=== PATIENT | female | born 1955 | race Caucasian/White ===

== ENCOUNTER → 2019-01-17 07:23 | Outpatient (CLI) | payer OTHER, SELFPAY ==
[2019-01-17 08:14] LABS: Add Manual Diff / Slide Review NO; Basophils Absolute Auto 100 /uL (0-100); Basophils Percent Auto 1.4 % (0-2); Eosinophils Absolute Auto 400 /uL (0-450); Eosinophils Percent Auto 5.9 % (2-4); Hematocrit 52.8 % (36-46); Hemoglobin 17.4 g/dL (12.0-16.0); Lymphocytes Absolute Auto 1900 /uL (1100-4500); Lymphocytes Percent Auto 28.9 % (25-40); Mean Corpuscular Hemoglobin 28.2 PG (26-34); Mean Corpuscular Volume 85.3 fL (80-100); Monocytes Absolute Auto 600 /uL (0-900); Monocytes Percent Auto 8.7 % (3-14); Neutrophils Absolute Auto 3600 /uL (1500-7000); Neutrophils Percent Auto 55.1 % (50-75); Platelet Count 216 X10^3/uL (150-400); Red Blood Cell Count 6.19 X10^6/uL (4.0-5.2); White Blood Cell Count 6.6 X10^3/uL (4.5-11.0)
[2019-01-17 08:28] LABS: Alanine Aminotransferase 66 IU/L (<35); Albumin 4.4 g/dL (3.5-5.0); Albumin Globulin Ratio 1.5 (1.0-2.8); Alkaline Phosphatase 87 U/L (38-126); Aspartate Aminotransferase 54 IU/L (14-36); Blood Urea Nitrogen 30 mg/dL (7-17); Carbon Dioxide 29 mmol/L (22-32); Chloride 99 mmol/L (98-107); Cholesterol 226 mg/dL (140-199); Estimated Glomerular Filt Rate 35.3 mL/min (>60); Glucose 136 mg/dL (80-110); HDL Cholesterol 38 mg/dL (40-60); HEMOLYSIS < 15 (0-50); LDL Cholesterol Calculated 139 mg/dL (<100); Magnesium 2.1 mg/dL (1.6-2.3); Potassium 4.1 mmol/L (3.4-5.1); Sodium 139 mmol/L (137-145); Total Protein 7.4 g/dL (6.3-8.2); Triglycerides 246 mg/dL (35-150)
[2019-01-17 08:31] LABS: B Type Natriuretic Peptide < 100 (<100)
[2019-01-17 08:58] LABS: HEMOLYSIS < 15 (0-50); Iron 149 ug/dL (37-170)
[2019-01-17 09:08] LABS: Percent Iron Saturation 38 % (15-50); Total Iron Binding Capacity 397 ug/dL (265-497); Transferrin 325 mg/dL (206-381)
[2019-01-17 09:16] LABS: Vitamin D 25 Hydroxy (D3) 27.5 ng/mL (30.0-100.0)
== END ==
PROVIDERS: PCP Physician Assistant; Visit Provider Physician Assistant
DX: E78.2 Mixed hyperlipidemia (principal); I50.21 Acute systolic (congestive) heart failure; J96.21 Acute and chronic respiratory failure with hypoxia; I48.92 Unspecified atrial flutter; R60.9 Edema, unspecified; E61.1 Iron deficiency; E55.9 Vitamin D deficiency, unspecified
CPT/HCPCS: 36415; 80053; 80061; 82306; 83540; 83550; 83735; 83880; 85025

== ENCOUNTER → 2019-02-01 13:47 | Outpatient (CLI) | payer OTHER, SELFPAY ==
[2019-02-01 14:39] LABS: Add Manual Diff / Slide Review NO; Basophils Percent Auto 0.8 % (0-2); Eosinophils Percent Auto 13.5 % (2-4); Hematocrit 50.7 % (36-46); Hemoglobin 16.7 g/dL (12.0-16.0); Lymphocytes Percent Auto 17.8 % (25-40); Mean Corpuscular HGB Conc 32.9 % (30-36); Mean Corpuscular Hemoglobin 28.3 PG (26-34); Mean Corpuscular Volume 86.1 fL (80-100); Monocytes Percent Auto 6.4 % (3-14); Neutrophils Percent Auto 61.5 % (50-75); Platelet Count 196 X10^3/uL (150-400); Red Blood Cell Count 5.89 X10^6/uL (4.0-5.2); Red Cell Distribution Width 16.5 % (11.6-14.8); White Blood Cell Count 8.4 X10^3/uL (4.5-11.0)
[2019-02-01 14:40] LABS: Basophils Absolute Auto 100 /uL (0-100); Eosinophils Absolute Auto 1100 /uL (0-450); Lymphocytes Absolute Auto 1500 /uL (1100-4500); Monocytes Absolute Auto 500 /uL (0-900); Neutrophils Absolute Auto 5100 /uL (1500-7000)
[2019-02-01 15:21] LABS: Alanine Aminotransferase 23 IU/L (<35); Albumin 4.2 g/dL (3.5-5.0); Albumin Globulin Ratio 1.6 (1.0-2.8); Alkaline Phosphatase 95 U/L (38-126); Aspartate Aminotransferase 21 IU/L (14-36); BUN Creatinine Ratio 20.3 (6-22); Bilirubin Total 0.7 mg/dL (0.2-1.3); Blood Urea Nitrogen 59 mg/dL (7-17); Calcium 10.3 mg/dL (8.4-10.2); Carbon Dioxide 34 mmol/L (22-32); Chloride 92 mmol/L (98-107); Estimated Glomerular Filt Rate 16.5 mL/min (>60); Globulin 2.7 g/dL (1.7-4.1); Glucose 119 mg/dL (80-110); HEMOLYSIS < 15 (0-50); Potassium 5.7 mmol/L (3.4-5.1); Sodium 137 mmol/L (137-145); Total Protein 6.9 g/dL (6.3-8.2)
[2019-02-01 16:26] LABS: Vitamin B12 669 pg/mL (239-931)
== END ==
PROVIDERS: PCP Physician Assistant; Visit Provider Physician Assistant
DX: N17.9 Acute kidney failure, unspecified (principal); R79.89 Other specified abnormal findings of blood chemistry; D58.2 Other hemoglobinopathies; R94.5 Abnormal results of liver function studies; D75.1 Secondary polycythemia
CPT/HCPCS: 36415; 80053; 82607; 82746; 85025

== ENCOUNTER → 2019-02-05 09:00 | Outpatient (CLI) | payer OTHER, SELFPAY ==
[2019-02-05 10:38] LABS: BUN Creatinine Ratio 25.4 (6-22); Blood Urea Nitrogen 61 mg/dL (7-17); Calcium 10.2 mg/dL (8.4-10.2); Carbon Dioxide 31 mmol/L (22-32); Chloride 95 mmol/L (98-107); Estimated Glomerular Filt Rate 20.5 mL/min (>60); Glucose 132 mg/dL (80-110); HEMOLYSIS < 15 (0-50); Sodium 137 mmol/L (137-145)
[2019-02-05 10:39] LABS: Potassium 5.6 mmol/L (3.4-5.1)
== END ==
PROVIDERS: PCP Physician Assistant; Visit Provider Internal Medicine Cardiovascular Disease
DX: I50.22 Chronic systolic (congestive) heart failure (principal)
CPT/HCPCS: 36415; 80048

== ENCOUNTER → 2019-02-15 18:47 | Outpatient (ROUT) | payer OTHER, SELFPAY ==
[2019-02-15 19:00] LABS: BUN Creatinine Ratio 19.6 (6-22); Blood Urea Nitrogen 45 mg/dL (7-17); Calcium 9.9 mg/dL (8.4-10.2); Carbon Dioxide 30 mmol/L (22-32); Chloride 102 mmol/L (98-107); Estimated Glomerular Filt Rate 21.6 mL/min (>60); Glucose 106 mg/dL (80-110); HEMOLYSIS < 15 (0-50); Potassium 4.7 mmol/L (3.4-5.1); Sodium 140 mmol/L (137-145)
== END ==
PROVIDERS: PCP Physician Assistant; Visit Provider Physician Assistant
DX: I50.21 Acute systolic (congestive) heart failure (principal)
CPT/HCPCS: 80048

== ENCOUNTER → 2019-02-23 14:25 | Outpatient (CLI) | payer OTHER, SELFPAY ==
--- NOTE | 2019-02-23 | DI.MG.S_ITS ---
BILATERAL DIGITAL SCREENING MAMMOGRAM 3D/2D WITH CAD: 02/23/2019 CLINICAL: Baseline exam. Routine screening. Family history of breast cancer. No prior exams were available for comparison. The tissue of both breasts is predominantly fatty. Current study was also evaluated with a Computer Aided Detection (CAD) system. No significant masses, calcifications, or other findings are seen in either breast. IMPRESSION: NEGATIVE There is no mammographic evidence of malignancy. A 1 year screening mammogram is recommended. This exam was interpreted at Station ID: [id number]. NOTE: For mammograms, a report in lay terms will be sent to the patient. Approximately 15% of breast malignancies will not be visualized mammographically. In the management of a palpable breast mass, a negative mammogram must not discourage biopsy of a clinically suspicious lesion. Electronically Signed By: Wallace stevenson/nolan:02/23/2019 16:35:34 letter sent: Normal Exam ACR BI-RADS Category 1: Negative [id number]
== END ==
PROVIDERS: PCP Physician Assistant; Visit Provider Physician Assistant
DX: Z12.31 Encounter for screening mammogram for malignant neoplasm of breast (principal); Z80.3 Family history of malignant neoplasm of breast
CPT/HCPCS: 77063; 77067

== ENCOUNTER → 2019-02-27 17:06 | Outpatient (CLI) | payer OTHER, SELFPAY ==
[2019-02-27 17:52] LABS: Add Manual Diff / Slide Review NO; Basophils Absolute Auto 100 /uL (0-100); Basophils Percent Auto 1.2 % (0-2); Eosinophils Absolute Auto 400 /uL (0-450); Eosinophils Percent Auto 6.6 % (2-4); Hematocrit 47.7 % (36-46); Hemoglobin 15.7 g/dL (12.0-16.0); Lymphocytes Absolute Auto 1800 /uL (1100-4500); Lymphocytes Percent Auto 29.2 % (25-40); Mean Corpuscular HGB Conc 32.9 % (30-36); Mean Corpuscular Hemoglobin 28.7 PG (26-34); Mean Corpuscular Volume 87.3 fL (80-100); Monocytes Absolute Auto 400 /uL (0-900); Monocytes Percent Auto 6.1 % (3-14); Neutrophils Absolute Auto 3500 /uL (1500-7000); Neutrophils Percent Auto 56.9 % (50-75); Platelet Count 176 X10^3/uL (150-400); Red Blood Cell Count 5.46 X10^6/uL (4.0-5.2); Red Cell Distribution Width 17.6 % (11.6-14.8); White Blood Cell Count 6.2 X10^3/uL (4.5-11.0)
[2019-02-27 18:15] LABS: BUN Creatinine Ratio 24.5 (6-22); Blood Urea Nitrogen 49 mg/dL (7-17); Calcium 9.7 mg/dL (8.4-10.2); Carbon Dioxide 27 mmol/L (22-32); Chloride 102 mmol/L (98-107); Estimated Glomerular Filt Rate 25.3 mL/min (>60); Glucose 113 mg/dL (80-110); HEMOLYSIS 17 (0-50); Potassium 5.1 mmol/L (3.4-5.1); Sodium 138 mmol/L (137-145)
[2019-02-27 18:27] LABS: B Type Natriuretic Peptide 112 (<100)
[2019-02-28 08:04] LABS: Bacteria Urine None Seen; RBC Urine None Seen (0-5/HPF); WBC Urine None Seen (0-5/HPF)
[2019-02-28 08:57] LABS: Appearance Urine UA TURBID; Bilirubin Urine UA NEGATIVE (NEGATIVE); Color Urine UA YELLOW; Glucose Urine UA NEGATIVE (Negative); Ketones Urine UA NEGATIVE (NEGATIVE); Leukocyte Esterase Urine UA NEGATIVE (NEGATIVE); Nitrite Urine UA NEGATIVE (Negative); Occult Blood Urine UA NEGATIVE (Negative); Protein Urine UA NEGATIVE (Negative); Urobilinogen Urine UA 0.2 E.U./dL (0.2)
[2019-02-28 09:03] LABS: Amorphous Sediment Urine 2+
[2019-02-28 09:25] LABS: Creatinine Urine Random 117.2 mg/dL; Protein (Total) Urine Random 9 mg/dL (0-12); Protein Creatinine Ratio Urine 0.07 GRAM/24H
== END ==
PROVIDERS: Family Provider Physician Assistant; PCP Physician Assistant; Visit Provider Internal Medicine Nephrology
DX: N05.9 Unspecified nephritic syndrome with unspecified morphologic changes (principal); I50.32 Chronic diastolic (congestive) heart failure; D63.1 Anemia in chronic kidney disease; N30.00 Acute cystitis without hematuria; R80.9 Proteinuria, unspecified; D70.9 Neutropenia, unspecified
CPT/HCPCS: 36415; 80048; 81001; 82570; 83880; 84156; 85025

== ENCOUNTER → 2019-03-07 14:21 | Outpatient (CLI) | payer OTHER, SELFPAY ==
--- NOTE | 2019-03-07 | DI.US.S_ITS ---
PROCEDURE: US RENAL COMPLETE INDICATIONS: ABNORMAL KIDNEY FUNCTION TESTS TECHNIQUE: Real-time scanning was performed of the kidneys and bladder, with image documentation. COMPARISON: None. FINDINGS: Kidneys: Kidneys are normal in size. Right kidney measures 11.8 cm long; left kidney measures 10.8 cm long. Right renal cortical thickness is 1.7 cm; left renal cortical thickness is 1.6 cm. Renal cortical echotexture is normal. No hydronephrosis or nephrolithiasis. No suspicious solid mass lesions. Bladder: Urinary bladder is not well-visualized secondary to inadequate distention. Visualized portions of the urinary bladder appear unremarkable. Miscellaneous: No free pelvic fluid. IMPRESSION: Unremarkable sonographic evaluation of the bilateral kidneys without evidence for obstructive uropathy, urolithiasis, or suspicious mass lesions. Suboptimal visualization of the urinary bladder secondary to patient's scanning characteristics and incomplete distention during examination. Dictated by: Jim Randolph M.D. on 03/08/2019 at 13:11 Approved by: Jim Randolph M.D. on 03/08/2019 at 13:14
== END ==
PROVIDERS: Family Provider Physician Assistant; PCP Physician Assistant; Visit Provider Internal Medicine Nephrology
DX: R94.4 Abnormal results of kidney function studies (principal); N32.0 Bladder-neck obstruction; N17.9 Acute kidney failure, unspecified
CPT/HCPCS: 76770

== ENCOUNTER → 2019-03-21 14:26 | Outpatient (CLI) | payer OTHER, SELFPAY ==
--- NOTE | 2019-03-21 | DI.ECHO.S_ITS ---
[facility]---------+ [facility] +---------+ : : [address] [place] : : : : [id number] : : : : Phone: [phone] Echocardiogram Report + + :Name: VINH MOSS Study Date: 03/21/2019 Height: 66 in : :[facility] Weight: 321 lb : : Gender: Female BSA: 2.4 m2 : :: 1955 Age: 63 yrs BP: 142/94 mmHg: :Reason For Study: Congestive Heart Failure : :Ordering Physician: Ana Barraza : :[place] Performed By: Vira Ivory : :Referring: ANA STOREY : + + Interpretation Summary 1) Mildly increased left ventricular thickness (concentric) with normal size, normal wall motion, and normal systolic function (EF 65-70%). 2) Grossly, normal right ventricular size and function. 3) No significant valvular abnormalities. 4) No prior Echo available for comparison. Procedure: A two-dimensional transthoracic echocardiogram with color flow and Doppler was performed. The study quality was technically difficult. A contrast injection of Definity was performed to improve assessment of LV function. There is no prior echocardiogram noted for this patient. Contrast requested on echo order. The patient was in sinus bradycardia with heart rates between 46-68 bpm during the exam. Left Ventricle: The left ventricle is normal in size. Left ventricular wall thickness is mildly increased. The ejection fraction is estimated to be 65- 70%. Left ventricular wall motion is normal. Right Ventricle: The right ventricle is not well visualized. The right ventricle grossly appears normal in size with probable normal systolic function. Atria: Both atria are normal in size. There is no Doppler evidence for an interatrial shunt. Mitral Valve: The mitral valve is normal in structure and function. There is no mitral regurgitation noted. Aortic Valve: The aortic valve is not well visualized. There is no aortic valve stenosis. No aortic regurgitation is present. Tricuspid Valve: The tricuspid valve is normal in structure and function. There is trace tricuspid regurgitation. Pulmonary artery pressures cannot be estimated because of the lack of a measurable TR jet velocity. Pulmonic Valve: The pulmonic valve is normal in structure and function. There is no pulmonic valvular regurgitation. Great Vessels: The aortic root is normal size. The ascending aorta is at the upper limits of normal in size. The inferior vena cava was not visualized. Pericardium/ Pleura There is an anterior echo-free space consistent with a fat pad. MMode/2D Measurements & Calculations LVIDd: 5.6 cm LVOT diam: 2.0 cm LVIDs: 3.5 cm Ao root diam: 2.9 cm FS: 37.6 % asc Aorta Diam: 3.6 cm EPSS: 0.60 cm Ao Arch Diam (Prox Trans): 3.0 cm IVSd: 1.2 cm LVPWd: 1.2 cm LV oneil. diameter/BSA (cm/m^2): 2.3 LV sys. diameter/BSA (cm/m^2): 1.4 LA A2 area: 18.2 cm2 RA long axis: 4.2 cm LA A4 area: 16.5 cm2 RA area: 13.4 cm2 LA length (vol): 5.0 cm RA vol: 35.7 ml LA vol: 51.1 ml RA : 14.6 ml/m2 LA vol index: 20.9 ml/m2 TAPSE: 2.4 cm Doppler Measurements & Calculations Ao V2 max: 157.8 cm/sec LVOT Max Marek: 123.6 cm/sec Ao V2 mean: 113.2 cm/sec LV V1 max P.1 mmHg Ao max P.0 mmHg LV V1 VTI: 33.1 cm Ao mean P.7 mmHg MYRON(I,D): 2.6 cm2 Ao V2 VTI: 38.6 cm MYRON(V,D): 2.4 cm2 sev ratio: 0.86 MYRON indexed to BSA (cm^2/m^2): 1.1 MV E max marek: 74.0 cm/sec PA V2 max: 99.1 cm/sec MV A max marek: 77.2 cm/sec PA V2 mean: 69.9 cm/sec MV E/A: 0.96 PA mean P.2 mmHg Med Peak E' Marek: 6.4 cm/sec PA pr(Accel): 21.4 mmHg E/E' med: 11.5 Lat Peak E' Marek: 7.8 cm/sec E/E' lat: 9.5 E/e' average: 10.5 MV dec time: 0.24 sec MV P1/2t: 67.8 msec MV P1/2t max marek: 72.9 cm/sec SV(LVOT): 99.7 ml MVA(P1/2t): 3.2 cm2 Reading Physician:04:57 PM
== END ==
PROVIDERS: Family Provider Physician Assistant; PCP Physician Assistant; Referring Provider Internal Medicine Cardiovascular Disease; Visit Provider Internal Medicine Cardiovascular Disease
DX: I50.22 Chronic systolic (congestive) heart failure (principal)
CPT/HCPCS: 93306; Q9957

== ENCOUNTER → 2019-03-29 13:19 | Outpatient (CLI) | payer OTHER, SELFPAY ==
--- NOTE | 2019-03-29 13:52 | DIET.PN ---
Dietary Progress Note Assessment: 63y F with hx of atrial flutter resulting in new kidney injury coming in for help with dietary advice on losing weight while protecting heart and kidney. Diet Hx: raised meat and potatoes, clean plate club, mom showed love with food, lost 125# using long term diet 4y ago, walking 4mi/d (was 200#), hx of yoyo dieting HT: 5'6 WT: 325#plateau for past 2w (389# in December) Weight Goal: 225# BMI: 52.5 Usual Day: wakes 630am Takes pills (lasix) at 7am B(8am): low sodium yogurt c granola school break 10:30am: cheese c mixed nuts, mini naked juice drink home 1:30pm difficulty for first meal when home dinner 6pm: salmon, other sides, scrambled eggs, thin bread, vegetable, 1/2 potato sn: 1/4c frozen berries goes to bed about 10pm Tuesday night: goes out for drinks, 1 drink equivalent per week 64oz fluid restriction: water, la croix likes crunchy physical activity: active during the day, walking 3 days per week- Labs: (02/2019) BUN 49 H, Cr 2.0 H, eGFR 25.3 L, BG 113 H, TG 246 H, TC 226 H, LDL 139 H, HDL 38 L, Vit D 27.5 L Nutrition Diagnosis: altered nutrition related laboratory values r/t undesirable food choices aeb pt hx of yoyo dieting, BMI 52.5, s/p acute kidney injury, atrial flutter, newly required by PCP for 64oz fluid restriction and 2g sodium limit c lasix. Interventions: 1. Discussed hunger scale and mindless eating, types of hunger. 2. Discussed plate method, proper proportions of food groups. 3. Discussed working up to 150 minutes of physical activity per week. Goals: 1. Wendy will walk or do stationary bike 10-30 minutes immediately after work, before eating lunch. 2. Add 1/2 cup vegetables of your liking to morning snack 3. Will purchase salad mixes to eat for lunch. Monitoring/Evaluations: f/u in 6w
== END ==
PROVIDERS: Family Provider Physician Assistant; PCP Physician Assistant; Referring Provider Physician Assistant; Visit Provider Physician Assistant
DX: N17.9 Acute kidney failure, unspecified (principal); E66.9 Obesity, unspecified; I48.92 Unspecified atrial flutter; Z68.43 Body mass index [BMI] 50.0-59.9, adult
CPT/HCPCS: 97802

== ENCOUNTER → 2019-08-20 18:13 | Outpatient (ROUT) | payer OTHER, SELFPAY ==
[2019-08-20 18:45] LABS: Add Manual Diff / Slide Review NO; Basophils Absolute Auto 0 /uL (0-100); Basophils Percent Auto 0.8 % (0-2); Eosinophils Absolute Auto 300 /uL (0-450); Eosinophils Percent Auto 4.9 % (2-4); Hematocrit 44.8 % (36-46); Hemoglobin 14.3 g/dL (12.0-16.0); Lymphocytes Absolute Auto 1800 /uL (1100-4500); Lymphocytes Percent Auto 32.4 % (25-40); Mean Corpuscular Hemoglobin 30.8 PG (26-34); Mean Corpuscular Volume 96.2 fL (80-100); Monocytes Absolute Auto 300 /uL (0-900); Monocytes Percent Auto 6.4 % (3-14); Neutrophils Absolute Auto 3000 /uL (1500-7000); Neutrophils Percent Auto 55.5 % (50-75); Platelet Count 159 X10^3/uL (150-400); Red Blood Cell Count 4.66 X10^6/uL (4.0-5.2); Red Cell Distribution Width 13.7 % (11.6-14.8); White Blood Cell Count 5.4 X10^3/uL (4.5-11.0)
[2019-08-20 18:48] LABS: Alanine Aminotransferase 12 IU/L (<35); Albumin Globulin Ratio 1.7 (1.0-2.8); Alkaline Phosphatase 75 U/L (38-126); Aspartate Aminotransferase 17 IU/L (14-36); BUN Creatinine Ratio 27.8 (6-22); Bilirubin Total 0.6 mg/dL (0.2-1.3); Blood Urea Nitrogen 42 mg/dL (7-17); Calcium 9.6 mg/dL (8.4-10.2); Carbon Dioxide 26 mmol/L (22-32); Chloride 107 mmol/L (98-107); Cholesterol 248 mg/dL (140-199); Globulin 2.3 g/dL (1.7-4.1); Glucose 77 mg/dL (80-110); HDL Cholesterol 55 mg/dL (40-60); HEMOLYSIS < 15 (0-50); LDL Cholesterol Calculated 160 mg/dL (<100); Magnesium 2.3 mg/dL (1.6-2.3); Potassium 5.1 mmol/L (3.4-5.1); Sodium 141 mmol/L (137-145); Total Protein 6.3 g/dL (6.3-8.2); Triglycerides 166 mg/dL (35-150)
[2019-08-20 18:59] LABS: Hemoglobin A1C% w Est Avg Glu 5.8 % (4.0-6.0)
[2019-08-20 19:02] LABS: Vitamin D 25 Hydroxy (D3) 21.3 ng/mL (30.0-100.0)
[2019-08-20 19:16] LABS: TSH w/ Reflex to FT4 7.66 uIU/mL (0.47-4.68)
[2019-08-20 19:58] LABS: Free T4, Direct Thyroxine 1.23 ng/dL (0.78-2.19)
== END ==
PROVIDERS: Family Provider Physician Assistant; PCP Physician Assistant; Visit Provider Physician Assistant
DX: I50.21 Acute systolic (congestive) heart failure (principal); E66.01 Morbid (severe) obesity due to excess calories; E78.2 Mixed hyperlipidemia; R20.9 Unspecified disturbances of skin sensation; E55.9 Vitamin D deficiency, unspecified; R53.83 Other fatigue; I48.91 Unspecified atrial fibrillation
CPT/HCPCS: 80053; 80061; 82306; 83036; 83735; 84439; 84443; 85025

== ENCOUNTER → 2019-12-12 07:34 | Outpatient (CLI) | payer OTHER, SELFPAY ==
[2019-12-12 08:47] LABS: Hematocrit 42.7 % (36-46); Hemoglobin 13.8 g/dL (12.0-16.0); Mean Corpuscular HGB Conc 32.4 % (30-36); Mean Corpuscular Hemoglobin 30.7 PG (26-34); Mean Corpuscular Volume 94.8 fL (80-100); Platelet Count 161 X10^3/uL (150-400); Red Blood Cell Count 4.51 X10^6/uL (4.0-5.2); Red Cell Distribution Width 13.7 % (11.6-14.8); White Blood Cell Count 5.8 X10^3/uL (4.5-11.0)
[2019-12-12 09:09] LABS: BUN Creatinine Ratio 24.8 (6-22); Blood Urea Nitrogen 28 mg/dL (7-17); Calcium 8.9 mg/dL (8.4-10.2); Carbon Dioxide 27 mmol/L (22-32); Chloride 107 mmol/L (98-107); Estimated Glomerular Filt Rate 48.8 mL/min (>60); Glucose 99 mg/dL (80-110); HEMOLYSIS < 15 (0-50); Phosphorous 3.5 mg/dL (2.8-4.1); Potassium 4.6 mmol/L (3.4-5.1); Sodium 139 mmol/L (137-145)
[2019-12-12 09:13] LABS: Creatinine Urine Random 192.1 mg/dL; Protein (Total) Urine Random 7 mg/dL (0-12); Protein Creatinine Ratio Urine 0.03 GRAM/24H
[2019-12-13 07:08] LABS: Parathyroid Hormone Int 55 pg/mL (15-65)
== END ==
PROVIDERS: Family Provider Physician Assistant; PCP Physician Assistant; Referring Provider Internal Medicine Nephrology; Visit Provider Internal Medicine Nephrology
DX: E83.30 Disorder of phosphorus metabolism, unspecified (principal); N25.81 Secondary hyperparathyroidism of renal origin; R80.9 Proteinuria, unspecified; N05.9 Unspecified nephritic syndrome with unspecified morphologic changes; D70.9 Neutropenia, unspecified; D63.1 Anemia in chronic kidney disease
CPT/HCPCS: 36415; 80048; 82570; 83970; 84100; 84156; 85027

== ENCOUNTER → 2020-04-16 07:08 | Outpatient (CLI) | payer OTHER, SELFPAY ==
[2020-04-16 08:05] LABS: Add Manual Diff / Slide Review NO; Basophils Absolute Auto 100 /uL (0-100); Basophils Percent Auto 1.1 % (0-2); Eosinophils Absolute Auto 300 /uL (0-450); Eosinophils Percent Auto 5.6 % (2-4); Hematocrit 41.3 % (36-46); Hemoglobin 13.5 g/dL (12.0-16.0); Lymphocytes Absolute Auto 1700 /uL (1100-4500); Lymphocytes Percent Auto 30.4 % (25-40); Mean Corpuscular HGB Conc 32.5 % (30-36); Mean Corpuscular Hemoglobin 30.6 PG (26-34); Monocytes Absolute Auto 300 /uL (0-900); Monocytes Percent Auto 5.6 % (3-14); Neutrophils Absolute Auto 3200 /uL (1500-7000); Neutrophils Percent Auto 57.3 % (50-75); Platelet Count 166 X10^3/uL (150-400); Red Blood Cell Count 4.39 X10^6/uL (4.0-5.2); Red Cell Distribution Width 14.3 % (11.6-14.8); White Blood Cell Count 5.6 X10^3/uL (4.5-11.0)
[2020-04-16 08:31] LABS: BUN Creatinine Ratio 20.9 (6-22); Blood Urea Nitrogen 27 mg/dL (7-17); Calcium 9.2 mg/dL (8.4-10.2); Carbon Dioxide 31 mmol/L (22-32); Chloride 107 mmol/L (98-107); Cholesterol 185 mg/dL (140-199); Estimated Glomerular Filt Rate 41.9 mL/min (>60); Glucose 107 mg/dL (80-110); HDL Cholesterol 54 mg/dL (40-60); HEMOLYSIS < 15 (0-50); LDL Cholesterol Calculated 105 mg/dL (<100); Potassium 5.1 mmol/L (3.4-5.1); Sodium 139 mmol/L (137-145); Triglycerides 130 mg/dL (35-150)
[2020-04-16 08:56] LABS: TSH w/ Reflex to FT4 4.49 uIU/mL (0.47-4.68)
== END ==
PROVIDERS: Family Provider Physician Assistant; PCP Physician Assistant; Referring Provider Internal Medicine Cardiovascular Disease; Visit Provider Internal Medicine Cardiovascular Disease
DX: Z00.00 Encounter for general adult medical examination without abnormal findings (principal); I48.19 Other persistent atrial fibrillation; Z79.01 Long term (current) use of anticoagulants
CPT/HCPCS: 36415; 80048; 80061; 84443; 85025

== ENCOUNTER → 2021-04-10 07:54 | Outpatient (CLI) | payer OTHER, SELFPAY ==
[2021-04-10 08:55] LABS: Add Manual Diff / Slide Review NO; Basophils Absolute Auto 100 /uL (0-100); Basophils Percent Auto 1.1 % (0-2); Eosinophils Absolute Auto 600 /uL (0-450); Eosinophils Percent Auto 8.8 % (2-4); Hematocrit 41.4 % (36-46); Hemoglobin 13.4 g/dL (12.0-16.0); Lymphocytes Absolute Auto 1700 /uL (1100-4500); Lymphocytes Percent Auto 26.4 % (25-40); Mean Corpuscular HGB Conc 32.4 % (30-36); Mean Corpuscular Hemoglobin 30.7 PG (26-34); Mean Corpuscular Volume 94.7 fL (80-100); Monocytes Absolute Auto 300 /uL (0-900); Monocytes Percent Auto 4.5 % (3-14); Neutrophils Absolute Auto 3800 /uL (1500-7000); Neutrophils Percent Auto 59.2 % (50-75); Platelet Count 187 X10^3/uL (150-400); Red Blood Cell Count 4.37 X10^6/uL (4.0-5.2); Red Cell Distribution Width 14.7 % (11.6-14.8); White Blood Cell Count 6.3 X10^3/uL (4.5-11.0)
[2021-04-10 09:06] LABS: BUN Creatinine Ratio 26.3 (6-22); Blood Urea Nitrogen 31 mg/dL (7-17); Calcium 9.2 mg/dL (8.4-10.2); Carbon Dioxide 26 mmol/L (22-32); Chloride 111 mmol/L (98-107); Cholesterol 205 mg/dL (140-199); Estimated Glomerular Filt Rate 46.3 mL/min (>60); Glucose 124 mg/dL (80-110); HDL Cholesterol 52 mg/dL (40-60); HEMOLYSIS < 15 (0-50); LDL Cholesterol Calculated 101 mg/dL (<100); Potassium 4.6 mmol/L (3.4-5.1); Sodium 144 mmol/L (137-145); Triglycerides 259 mg/dL (35-150)
[2021-04-10 10:02] LABS: TSH w/ Reflex to FT4 3.24 uIU/mL (0.47-4.68)
== END ==
PROVIDERS: Family Provider Physician Assistant; PCP Physician Assistant; Referring Provider Internal Medicine Cardiovascular Disease; Visit Provider Internal Medicine Cardiovascular Disease
DX: I50.22 Chronic systolic (congestive) heart failure (principal); Z79.01 Long term (current) use of anticoagulants; E78.5 Hyperlipidemia, unspecified; I48.19 Other persistent atrial fibrillation
CPT/HCPCS: 36415; 80048; 80061; 84443; 85025

== ENCOUNTER → 2021-09-25 10:45 | Outpatient (CLI) | payer OTHER, SELFPAY ==
--- NOTE | 2021-09-25 11:00 | DI.RAD.S_ITS ---
PROCEDURE: XR KNEE LT 3V INDICATIONS: worsening knee pain x1 year TECHNIQUE: 3 views of the knee were acquired. COMPARISON: None. FINDINGS: Bones: No fractures or dislocations. [id number] tricompartmental osteoarthritis is seen more prominent in medial femoral tibial compartment with joint space narrowing and subchondral sclerosis. No suspicious bony lesions. Soft tissues: No joint effusion. No suspicious soft tissue calcifications. 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 No fracture or dislocation. No significant joint effusion. Dictated by: Jayant Hartman M.D. on 09/25/2021 at 11:46 Approved by: Jayant Hartman M.D. on 09/25/2021 at 11:52
== END ==
PROVIDERS: Family Provider Physician Assistant; PCP Physician Assistant; Referring Provider Nurse Practitioner Critical Care Medicine; Visit Provider Nurse Practitioner Critical Care Medicine
DX: M17.12 Unilateral primary osteoarthritis, left knee (principal); M25.562 Pain in left knee
CPT/HCPCS: 73562